=== PATIENT | male | born 1970 | race Caucasian/White ===

== ENCOUNTER 2021-01-30 12:58 | Emergency (ER) | payer OTHER ==
--- OUTSIDE RECORDS SUMMARY | 2021-01-30 13:01 | XMS REPORT | Continuity of Care Document ---
:1970 Author Organization [facility] t Address [address] Hathaway. [address] [place] [address] Care Team Providers Name Role Phone Pob, Lab Main Attending Clinician Unavailable Doctor Unassigned, Name Attending Clinician Unavailable Lab, Fam Pob I Attending Clinician Unavailable Problems This patient has no known problems. Allergies, Adverse Reactions, Alerts This patient has no known allergies or adverse reactions. Medications This patient has no known medications. Procedures This patient has no known procedures. Encounters Start End Encounter Admission Attending Care Care Encounter Source Date/Time Date/Time Type Type Clinicians Facility Department ID 2020-11-29 2020-11-29 Telegraph [employer]pe[employer] Installer Ildefonso [facility] [id number] 09:15:46 09:30:46 Visit Lab Main [place] [id number] [place] [id number] Professio [phone] [address] 2020-11-29 2020-11-29 Orders Doctor MARIJA [id number] 00:00:00 00:00:00 Only Unassigned, YUNG [id number] [place] [facility] [phone] [id number] 2020-09-13 2020-09-13 Laboratory Lab, [facility] [id number] 09:43:26 10:03:26 Only Fam Pob I Health [id number] [place] [id number] Professio [phone] [place] [address] Office [address] One Results This patient has no known results.
[2021-01-30 13:41] LABS: Urine Blood Negative (Negative); Urine Glucose Negative (Negative); Urine Protein Negative (Negative); Urine Specific Gravity 1.015 (1.005-1.030)
[2021-01-30] MEDS ORDERED: NA CHLORIDE 0.9% 1,000 ML ONE (14:02)
[2021-01-30 14:14] LABS: Absolute Lymphocytes (CBC) 0.9 K/uL (0.7-4.9); Basophils % 0.5 % (0-1.3); MPV 7.5 fL (7.6-11.3); RBC Red Blood Cell Count 4.39 M/uL (4.33-5.43)
[2021-01-30 14:23] LABS: ALT/SGPT 61 U/L (12-78); AST/SGOT 43 U/L (15-37); Albumin 3.7 g/dL (3.4-5.0); Alkaline Phosphatase 52 U/L (45-117); BUN Blood Urea Nitrogen 13 mg/dL (7-18); Bicarbonate 27 mmol/L (21-32); Bilirubin Direct 0.2 mg/dL (0-0.2); Bilirubin Total 0.5 mg/dL (0.2-1.0); Glucose Level 88 mg/dL (74-106); Lipase 100 U/L (73-393); Potassium 3.8 mmol/L (3.5-5.1); Protein, Total 8.1 g/dL (6.4-8.2); Sodium Level 135 mmol/L (136-145)
--- NOTE | 2021-01-30 14:59 | RAD REPORT ---
EXAM DESCRIPTION: CT - Abdomen Pelvis W Contrast - 01/30/2021 2:18 pm CLINICAL HISTORY: flank pain, abdominal pain, bilateral COMPARISON: No comparisons TECHNIQUE: Biphasic, helical CT imaging of the abdomen and pelvis was performed following 100 ml non -ionic IV contrast. No oral contrast administered. All CT scans are performed using dose optimization technique as appropriate and may include automated exposure control or mA/KV adjustment according to patient size. FINDINGS: No suspicious findings in the lung bases. The liver, spleen, and pancreas show no suspicious focal findings. Liver does show diffuse fatty infi ltration. No portal vein abnormality. Gallbladder and biliary tree are also without suspicious findin g. Symmetric renal function is seen with no hydronephrosis or suspicious renal mass. No pyelonephritis o r acute parenchymal process. A 5.5 centimeter cyst is present lateral mid left kidney. No acute paren chymal process. There is normal variant incomplete rotation of the right kidney. No adrenal abnormali ties. Urinary bladder is too contracted to allow assessment. Cystitis cannot be excluded in this sett ing. No gastric dilatation or gastric wall thickening. No dilated large or small bowel identified. Appendi x is not well defined. A primary appendix process is not suspected. There is moderate stool volume th roughout the colon. Sigmoid colon is tortuous. No free air or pneumatosis. No abnormal free fluid collection. Pelvic floor phleboliths are present. Small bilateral fat filled inguinal hernias are present. No bulky lymphadenopathy or focal mass. Disc and bone degenerative changes are present. Vascular calcifications are present. Patient has an unusual presentation of nonspecific stranding or edema in the perirectal fat which is mild in degree. There is more prominent stranding along the bilateral external iliac and common iliac vasculature. This continues into the inferior aspect of the left pericolic gutter. Small amount of s tranding is seen in the fat of the inferior mesentery. There are several small rounded calcified mass es in the mesenteric fat unassociated with bowel. The findings are unusual. Retroperitoneal fibrosis is typically seen as a soft tissue mass around the aorta which does not exist in this patient. A o r GI primary abnormality is not seen. Findings may reflect a nonspecific infectious/ inflammatory process. Findings arm most pronounced hector und the bilateral iliac vasculature and this may be a periarteritis. A component of mesenteric arteri tis may explain the lower mesenteric finding. Calcified masses may be sequela of prior episodes. IMPRESSION: Unusual pattern of edematous/ inflammatory stranding adjacent to the bilateral iliac vas culature and extending to lesser severity along the mesenteric vasculature of the lower pelvis. A chester delmy bowel or Jose Luis process is not identified. The unusual pattern may represent a periarteritis or mesenteric arteritis. Patient has several small calcified masses in the mesenteric fat that may be the sequela of prior def ense. Urinary bladder is contracted which accentuates wall thickness. Cystitis cannot be excluded. No pyelo nephritis.
--- NOTE | 2021-01-30 15:44 | ER ---
Nurse's Notes [facility] Name: Chang Edgar Age: 51 yrs Sex: Male : 1970 Arrival Date: 01/30/2021 Time: 13:04 Bed 14 Private MD: Diagnosis: Generalized abdominal pain Presentation: 01/30 13:17 Chief complaint: Patient states: "I am having left and right sided lower back pain and jd3 this hard spot on the left side of my stomach that hurts to touch. at first I thought it was just not drinking enough water, but I drank plenty of water and it did not improve.". Coronavirus screen: At this time, the client does not indicate any symptoms associated with coronavirus-19. Ebola Screen: Patient negative for fever greater than or equal to 101.5 degrees Fahrenheit, and additional compatible Ebola Virus Disease symptoms. Initial Sepsis Screen: Does the patient meet any 2 criteria? No. Patient's initial sepsis screen is negative. Does the patient have a suspected source of infection? No. Patient's initial sepsis screen is negative. Risk Assessment: Do you want to hurt yourself or someone else? Patient reports no desire to harm self or others. Onset of symptoms was January 30, 2021. 13:17 Method Of Arrival: Ambulatory jd3 13:17 Acuity: BG 3 jd3 Historical: - Allergies: 13:20 No Known Allergies; jd3 - Home Meds: 13:20 Tramadol Oral [Active]; losartan oral oral [Active]; gabapentin oral oral [Active]; jd3 - PMHx: 13:20 Hypertension; Asthma; jd3 - PSHx: 13:20 back surgery; jd3 - Immunization history:: Adult Immunizations up to date. - Social history:: Smoking status: Patient reports the use of cigarette tobacco products, smokes one-half pack cigarettes per day. Screenin:33 Abuse screen: Denies threats or abuse. Nutritional screening: No deficits noted. vg1 Tuberculosis screening: No symptoms or risk factors identified. Fall Risk No fall in past 12 months (0 pts). No secondary diagnosis (0 pts). No IV (0 pts). Ambulatory Aid- None/Bed Rest/Nurse Assist (0 pts). Gait- Normal/Bed Rest/Wheelchair (0 pts) Mental Status- Oriented to own ability (0 pts). Total Camacho Fall Scale indicates No Risk (0-24 pts). Assessment: 13:31 General: Appears in no apparent distress. uncomfortable, Behavior is calm, cooperative. vg1 Pain: Complains of pain in Left flank, right flank and LUQ and LLQ Pain radiates to down to left side of groin Pain currently is 10 out of 10 on a pain scale. Pain began this morning around 0430. Neuro: Level of Consciousness is awake, alert, obeys commands, Oriented to person, place, time, situation. Cardiovascular: Patient's skin is warm and dry. Respiratory: Airway is patent Respiratory effort is even, unlabored. GI: Patient currently denies diarrhea, nausea, vomiting. : Reports urinary frequency, Denies burning with urination, inability to void. EENT: No signs and/or symptoms were reported regarding the EENT system. Derm: Skin is intact, is healthy with good turgor. Musculoskeletal: Circulation, motion, and sensation intact. 14:38 Reassessment: Patient appears in no apparent distress at this time. No changes from vg1 previously documented assessment. Patient and/or family updated on plan of care and expected duration. Pain level reassessed. Patient is alert, oriented x 3, equal unlabored respirations, skin warm/dry/pink. 15:42 Reassessment: Patient appears in no apparent distress at this time. No changes from vg1 previously documented assessment. Patient and/or family updated on plan of care and expected duration. Pain level reassessed. Patient is alert, oriented x 3, equal unlabored respirations, skin warm/dry/pink. Vital Signs: 13:20 BP 144 / 87; Pulse 105; Resp 18 S; Temp 98.0(TE); Pulse Ox 97% on R/A; Weight 139.25 kg jd3 (R); Height 5 ft. 11 in. (180.34 cm) (R); Pain 10/10; 14:36 BP 130 / 83; Pulse 93; Resp 18; Pulse Ox 97% on R/A; vg1 15:42 BP 130 / 81; Pulse 95; Resp 16; Pulse Ox 100% on R/A; vg1 13:20 Body Mass Index 42.82 (139.25 kg, 180.34 cm) d3 ED Course: 13:04 Patient arrived in ED. mr 13:18 Triage completed. jd3 13:18 Michael Dudley PA is PHCP. [facility] 13:18 Piper Singh MD is Attending Physician. jmm 13:20 Arm band placed on. jd3 13:28 Shadia Zamorano, RN is Primary Nurse. vg1 13:34 Patient has correct armband on for positive identification. Bed in low position. Call vg1 light in reach. Side rails up X 1. 13:51 Initial lab(s) drawn, by me, sent to lab. Inserted saline lock: 20 gauge in right vg1 antecubital area, using aseptic technique. Blood collected. 14:18 CT Abd/Pelvis - IV Contrast Only In Process Unspecified. EDMS 16:06 No provider procedures requiring assistance completed. IV discontinued, intact, vg1 bleeding controlled, No redness/swelling at site. Pressure dressing applied. Administered Medications: 13:53 Drug: NS 0.9% 1000 ml Route: IV; Rate: 1 bolus; Site: right antecubital; vg1 15:44 Follow up: IV Status: Completed infusion; IV Intake: 1000ml vg1 Intake: 15:44 IV: 1000ml; Total: 1000ml. vg1 Outcome: 15:43 Discharge ordered by . [facility] 16:06 Discharged to home ambulatory. vg1 16:06 Condition: stable 16:06 Discharge instructions given to patient, Instructed on discharge instructions, follow up and referral plans. Demonstrated understanding of instructions, follow-up care. 16:06 Patient left the ED. vg1 Signatures: Dispatcher [employer] EDAZ Michael Dudley PA PA [facility] Paige CooperMando RN RN Shadia Eagle, RN RN vg1
--- NOTE | 2021-01-30 15:44 | EDPHYS ---
Physician Documentation [facility] Name: Chang Edgar Age: 51 yrs Sex: Male : 1970 Arrival Date: 01/30/2021 Time: 13:04 Bed 14 Private MD: ED Physician Piper Singh HPI: 01/30 13:27 This 51 yrs old Male presents to ER via Ambulatory with complaints of Back jmm Pain, Abdominal Pain, Mouth Problem. 13:27 The patient presents with pain that is acute. Onset: The symptoms/episode jmm began/occurred gradually. The pain radiates to the abdomen. Associated signs and symptoms: Pertinent positives: abdominal pain, dysuria, Pertinent negatives: chest pain, vomiting. Modifying factors: The patient symptoms are alleviated by nothing, the patient symptoms are aggravated by palpation. This is a 51 year old male with a history of htn, asthma that presents to the ED with complaints of abdominal pain, flank pain, concerned about dehydration. Patient states symptoms occurred after taking his b12 shot. Also complains of dysuria. . Historical: - Allergies: 13:20 No Known Allergies; jd3 - Home Meds: 13:20 Tramadol Oral [Active]; losartan oral oral [Active]; gabapentin oral oral [Active]; jd3 - PMHx: 13:20 Hypertension; Asthma; jd3 - PSHx: 13:20 back surgery; jd3 - Immunization history:: Adult Immunizations up to date. - Social history:: Smoking status: Patient reports the use of cigarette tobacco products, smokes one-half pack cigarettes per day. ROS: 13:27 Constitutional: Negative for fever, chills, and weight loss, Eyes: Negative for injury, jmm pain, redness, and discharge, Cardiovascular: Negative for chest pain, palpitations, and edema, Respiratory: Negative for shortness of breath, cough, wheezing, and pleuritic chest pain. 13:27 Abdomen/GI: Positive for abdominal pain. 13:27 All other systems are negative. Exam: 13:27 Constitutional: This is a well developed, well nourished patient who is awake, alert, jmm and in no acute distress. Head/Face: atraumatic. 13:27 Chest/axilla: Normal chest wall appearance and motion. Cardiovascular: Regular rate and rhythm. No edema appreciated Respiratory: Normal respirations, no respiratory distress appreciated 13:27 Skin: General appearance color normal MS/ Extremity: Moves all extremities, no obvious deformities appreciated, no edema noted to the lower extremities Neuro: Awake and alert, normal gait Psych: Behavior is normal, Mood is normal, Patient is cooperative and pleasant 13:27 Eyes: Conjunctiva: injected, bilaterally. 13:27 Abdomen/GI: Inspection: obese Palpation: soft, mild abdominal tenderness, in the left upper quadrant. Vital Signs: 13:20 BP 144 / 87; Pulse 105; Resp 18 S; Temp 98.0(TE); Pulse Ox 97% on R/A; Weight 139.25 kg jd3 (R); Height 5 ft. 11 in. (180.34 cm) (R); Pain 10/10; 14:36 BP 130 / 83; Pulse 93; Resp 18; Pulse Ox 97% on R/A; vg1 15:42 BP 130 / 81; Pulse 95; Resp 16; Pulse Ox 100% on R/A; vg1 13:20 Body Mass Index 42.82 (139.25 kg, 180.34 cm) jd3 MDM: 13:27 Patient medically screened. [facility] 15:40 Data reviewed: vital signs, nurses notes. Counseling: I had a detailed discussion with [facility] the patient and/or guardian regarding: the historical points, exam findings, and any diagnostic results supporting the discharge/admit diagnosis, lab results, radiology results, the need for outpatient follow up, to return to the emergency department if symptoms worsen or persist or if there are any questions or concerns that arise at home. ED course: Patient is alert and non toxic in appearance in the ED. No signs of an acute emergent process. CT findings discussed with the patient along with the need to follow up with GI. Patient understood and agrees with the plan of care. Patient otherwise given strict return precautions. . 01/30 13:36 Order name: Basic Metabolic Panel; Complete Time: 14:26 [facility] 01/30 13:36 Order name: CBC with Diff; Complete Time: 14:21 [facility] 01/30 13:36 Order name: Hepatic Function; Complete Time: 14:26 [facility] 01/30 13:36 Order name: Lipase; Complete Time: 14:26 [facility] 01/30 13:36 Order name: CT Abd/Pelvis - IV Contrast Only; Complete Time: 15:03 [facility] 01/30 13:41 Order name: Urine Dipstick-Ancillary; Complete Time: 13:53 [facility] 01/30 13:36 Order name: IV Saline Lock; Complete Time: 13:53 [facility] 01/30 13:36 Order name: Labs collected and sent; Complete Time: 13:53 [facility] 01/30 13:36 Order name: Urine Dipstick-Ancillary (obtain specimen); Complete Time: 13:40 [facility] Administered Medications: 13:53 Drug: NS 0.9% 1000 ml Route: IV; Rate: 1 bolus; Site: right antecubital; vg1 15:44 Follow up: IV Status: Completed infusion; IV Intake: 1000ml vg1 Disposition: 01/30/21 15:43 Discharged to Home. Impression: Generalized abdominal pain. - Condition is Stable. - Discharge Instructions: Abdominal Pain, Adult. - Medication Reconciliation Form, Thank You Letter, Antibiotic Education, Prescription Opioid Use form. - Follow up: Private Physician; When: 2 - 3 days; Reason: Recheck today's complaints, Continuance of care, Re-evaluation by your physician. Signatures: Dispatcher [employer] [facility] Michael Dudley PA PA jmm Davies, Jonathon RN RN jShadia Medina RN RN vg1 Corrections: (The following items were deleted from the chart) 16:06 15:43 01/30/2021 15:43 Discharged to Home. Impression: Generalized abdominal pain. vg1 Condition is Stable. Forms are Medication Reconciliation Form, Thank You Letter, Antibiotic Education, Prescription Opioid Use. Follow up: Private Physician; When: 2 - 3 days; Reason: Recheck today's complaints, Continuance of care, Re-evaluation by your physician. [facility]
[2021-01-30 16:14] VITALS: TEMP 98
[2021-01-30 16:18] VITALS: BP 130/81; O2SAT 100
== END 2021-01-30 16:06 | disposition home or self-care (01) ==
LOC: ER 12:58
DX: R10.84 Generalized abdominal pain (principal); I10 Essential (primary) hypertension; F17.210 Nicotine dependence, cigarettes, uncomplicated
CPT/HCPCS: 85025; 80048; 36415; 82565; 80076; 81003; 83690; 74177; Q9967; J7030

== ENCOUNTER 2022-04-07 09:33 | Emergency (ER) | payer OTHER ==
--- OUTSIDE RECORDS SUMMARY | 2022-04-07 09:38 | XMS REPORT | Continuity of Care Document ---
:1970 Author Organization [facility] t Address [address] [place] [address] Dr. H[address]away[address] [place] [address] Care Team Providers Name Role Phone Pramod Willoughby Primary Care Physician Pob, Adc Lab Main Attending Clinician Unavailable Bill Anaya MD Attending Clinician Doctor Unassigned, [place] Attending Clinician Unavailable Lab, Adc Fam Pob I Attending Clinician Unavailable Payers Payer Name Policy Type Policy Number Effective Date Expiration Date S ource Problems This patient has no known problems. Allergies, Adverse Reactions, Alerts This patient has no known allergies or adverse reactions. Social History Social Habit Start Date Stop Date Quantity Comments Source Exposure to 2021-12-09 2021-12-19 Not sure [facility] SARS-CoV-2 (event) [facility]00[facility]00 [facility] At [birth year] [facility] 00:00:00 00:00:00 [facility] Branch Smoking Status Start Date Stop Date Source Unknown if ever smoked [facility] Medications Ordered Filled Start Stop Current Ordering Indication Dosage Frequency Signature Comments Components Source Medication Medication Date Date Medication? Clinician (SIG) Name Name No known No [facility] medications 5-16 ity of 19:36: [address] Immunizations Ordered Filled Immunization Date Status Comments Sour e Immunization Name Name SARS-COV-2 COVID-19 2020-11-17 Completed Unive rsity of MODERNA VACCINE 00:00:00 [facility] SARS-COV-2 COVID-19 2020-10-20 Completed Unive rsity of MODERNA VACCINE 00:00:00 [facility] Branch Procedures This patient has no known procedures. Encounters Start End Encounter Admission Attending Care Care Encounter Source Date/Time Date/Time Type Type Clinicians Facility Department ID 2021-12-19 2021-12-19 Inner Diameter Grinder Tool Tonia Fregoso Lab Main [place] [id number] [facility] 09:00:00 09:15:00 Visit Bill Anaya [id number] [place] [facility] [id number] [place] PROFESSIO [phone] Sc dical [facility] [address] [facility] 2020-11-29 2020-11-29 [employer] Di[employer] Grinder Tool Tonia Fregoso [place] [id number] 09:15:46 09:30:46 Visit Lab Main [place] [id number] [place] [id number] Professio [phone] [address] 2020-11-29 2020-11-29 Orders Doctor MARIJA [id number] 00:00:00 00:00:00 Only Unassigned, YUNG [id number] [place] [facility] [phone] [id number] 2020-09-13 2020-09-13 Laboratory Lab, [facility] [id number] 09:43:26 10:03:26 Only Fam Pob Health [id number] [place] [id number] Professio [phone] [place] [address] [address] One Results This patient has no known results.
--- NOTE | 2022-04-07 10:23 | EDPHYS ---
Physician Documentation [facility] Name: Chang Edgar Age: 52 yrs Sex: Male : 1970 Arrival Date: 04/07/2022 Time: 09:36 Bed 14 Private MD: ED Physician Michael Blake HPI: 04/07 10:05 This 52 yrs old Male presents to ER via Ambulatory with complaints of Rectal Pain. cp 10:05 The patient presents to the emergency department with pain in the rectal area, that is cp moderate. 10:05 Onset: The symptoms/episode began/occurred yesterday, and became worse today. cp 10:05 Context: the patient Patient reports starting having constipation this week, attempted cp to disimpact himself and self administered an enema on Sunday. Reports 19 bowel movements yesterday and started having rectal pain that became worse today and caused him to leave work early. Associate signs and symptoms: Pertinent negatives: abdominal pain, fever, lower GI bleeding, vomiting. Historical: - Allergies: 09:46 No Known Allergies; bp - Home Meds: 09:46 baclofen 5 mg Oral tab 1 tab 3 times per day [Active]; duloxetine 60 mg Oral CDRS 1 cap bp once daily [Active]; gabapentin Oral [Active]; losartan Oral [Active]; Tramadol Oral [Active]; - PMHx: 09:46 Anxiety; Asthma; Back muscle spasms; Hypertension; Retroperitoneal Fibrosis; bp - PSHx: 09:46 Spinal surgery; Tonsillectomy; bp - Immunization history:: Adult Immunizations up to date. - Social history:: Smoking status: unknown. ROS: 10:10 Abdomen/GI: Positive for rectal pain, Negative for abdominal pain, nausea and vomiting, cp rectal bleeding. 10:10 Respiratory: Negative for cough, shortness of breath, wheezing. cp 10:10 Eyes: Negative for injury, pain, redness, and discharge. cp 10:10 Constitutional: Negative for body aches, chills, fever, poor PO intake. 10:10 ENT: Negative for drainage from ear(s), ear pain, sore throat, difficulty swallowing, difficulty handling secretions. 10:10 Cardiovascular: Negative for chest pain. 10:10 : Negative for urinary symptoms, testicular pain cp 10:10 All other systems are negative. Exam: 10:15 Constitutional: The patient appears in no acute distress, alert, awake, non-toxic, well cp developed, well nourished, uncomfortable. 10:15 Head/Face: Normocephalic, atraumatic. cp 10:15 Chest/axilla: Inspection: normal. 10:15 Cardiovascular: Rate: tachycardic. 10:15 Respiratory: the patient does not display signs of respiratory distress, Respirations: normal, no use of accessory muscles, no retractions, labored breathing, is not present. 10:15 Abdomen/GI: Inspection: abdomen appears normal, Palpation: abdomen is soft and non-tender, in all quadrants, Rectal exam: hemorrhoid(s), internal, with pain, without bleeding, without thrombosis, minimal inflammation, tenderness, that is moderate. 10:15 Back: pain, is absent, ROM is normal. Vital Signs: 09:44 BP 130 / 87; Pulse 100; Resp 20; Temp 98; Pulse Ox 100% ; bp MDM: 09:49 Patient medically screened. cp 10:00 Differential diagnosis: hemorrhoids, fissure, abscess, pilonidal cyst, condyloma. cp 10:22 Data reviewed: vital signs, nurses notes. cp 10:22 Counseling: I had a detailed discussion with the patient and/or guardian regarding: the cp historical points, exam findings, and any diagnostic results supporting the discharge/admit diagnosis, to return to the emergency department if symptoms worsen or persist or if there are any questions or concerns that arise at home. Administered Medications: No medications were administered Disposition: 11:18 Co-signature as Attending Physician, Michael Blake MD I agree with the assessment and kdr plan of care. Disposition Summary: 04/07/22 10:22 Discharge Ordered Location: Home cp Problem: new cp Symptoms: have improved cp Condition: Stable cp Diagnosis - Other hemorrhoids cp Followup: cp - With: Private Physician - When: 2 - 3 days - Reason: Recheck today's complaints Discharge Instructions: - Discharge Summary Sheet cp - High-Fiber Diet cp - Hemorrhoids cp Forms: - Medication Reconciliation Form cp - Work release form iw - Thank You Letter cp - Antibiotic Education cp - Prescription Opioid Use cp Prescriptions: - Anusol-HC 25 mg Rectal Suppository - insert 1 suppository by RECTAL route every 12 hours As needed; 20 suppository; cp Refills: 0, Product Selection Permitted Signatures: Michael Blake MD MD kdr Renzo Awan PA PA cp Fernandez Snell, RN RN bp
--- NOTE | 2022-04-07 10:23 | ER ---
Nurse's Notes [facility] Name: Chang Edgar Age: 52 yrs Sex: Male : 1970 Arrival Date: 04/07/2022 Time: 09:36 Bed 14 Private MD: Diagnosis: Other hemorrhoids Presentation: 04/07 09:44 Chief complaint: Patient states: "I THINK I HAD A FECAL IMPACTION, SO I DISIMPACTED bp MYSELF. THEN I USED LAXATIVES, SUPPOSITORIES AND ENEMAS. NOW IT HURTS TO SIT DOWN.". Coronavirus screen: At this time, the client does not indicate any symptoms associated with coronavirus-19. Ebola Screen: No symptoms or risks identified at this time. Initial Sepsis Screen: Does the patient meet any 2 criteria? HR > 90 bpm. No. Patient's initial sepsis screen is negative. Does the patient have a suspected source of infection? No. Patient's initial sepsis screen is negative. Risk Assessment: Do you want to hurt yourself or someone else? Patient reports no desire to harm self or others. Onset of symptoms is unknown. 09:44 Method Of Arrival: Ambulatory bp 09:44 Acuity: BG 3 bp Triage Assessment: 09:46 General: Appears distressed, uncomfortable, Behavior is cooperative, appropriate for bp age, anxious. Pain: Complains of pain in buttocks. EENT: No deficits noted. Neuro: No deficits noted. Cardiovascular: No deficits noted. Respiratory: No deficits noted. GI: Reports RECTAL PAIN AND INFLAMMATION. : No signs and/or symptoms were reported regarding the genitourinary system. Derm: No deficits noted. Musculoskeletal: No deficits noted. Historical: - Allergies: :46 No Known Allergies; bp - Home Meds: :46 baclofen 5 mg Oral tab 1 tab 3 times per day [Active]; duloxetine 60 mg Oral CDRS 1 cap bp once daily [Active]; gabapentin Oral [Active]; losartan Oral [Active]; Tramadol Oral [Active]; - PMHx: 09:46 Anxiety; Asthma; Back muscle spasms; Hypertension; Retroperitoneal Fibrosis; bp - PSHx: 09:46 Spinal surgery; Tonsillectomy; bp - Immunization history:: Adult Immunizations up to date. - Social history:: Smoking status: unknown. Screenin:49 Abuse screen: Denies threats or abuse. Denies injuries from another. Nutritional bp screening: No deficits noted. Tuberculosis screening: No symptoms or risk factors identified. Fall Risk None identified. Assessment: :49 General: SEE TRIAGE NOTE. bp 10:39 Reassessment: PT D/C HOME AMBULATORY. bp Vital Signs: 09:44 BP 130 / 87; Pulse 100; Resp 20; Temp 98; Pulse Ox 100% ; bp ED Course: 09:36 Patient arrived in ED. rg4 09:39 Fernandez Snell, RN is Primary Nurse. bp 09:46 Triage completed. bp 09:46 Arm band placed on. bp 09:48 Renzo Awan PA is PHCP. cp 09:49 Michael Blake MD is Attending Physician. cp 09:49 Patient has correct armband on for positive identification. Bed in low position. Call bp light in reach. Side rails up X2. 10:39 No provider procedures requiring assistance completed. Patient did not have IV access bp during this emergency room visit. Administered Medications: No medications were administered Medication: :49 VIS not applicable for this client. bp Outcome: 10:22 Discharge ordered by . cp 10:39 Discharged to home ambulatory. bp 10:39 Condition: stable 10:39 Discharge instructions given to patient, Instructed on discharge instructions, follow up and referral plans. medication usage, Demonstrated understanding of instructions, follow-up care, medications, Prescriptions given X 1. 10:40 Patient left the ED. bp Signatures: Renzo Awan PA PA cp Garcia, Rubi rg4 Fernandez Snell, RN RN bp
[2022-04-07 10:48] VITALS: BP 130/87; TEMP 98; O2SAT 100
== END 2022-04-07 10:40 | disposition home or self-care (01) ==
LOC: ER 09:33
DX: K64.8 Other hemorrhoids (principal); I10 Essential (primary) hypertension; F41.9 Anxiety disorder, unspecified
CPT/HCPCS: 99282